=== PATIENT | male | born 1965 | race Caucasian/White ===

== ENCOUNTER → 2016-11-29 | Outpatient (CLI) | payer MEDICARE, MEDICAID ==
[~2016-11-29] MED LIST: ACYCLOVIR800 MG PO; AUGMENTIN 500 M1 TAB PO; BACTRIM DS 8001 TA1 PO; CARDURA8 M1 PO; CLONIDINE0.3 MG PO; COREG3.125 MG PO; COUMADIN1 MG PO; DAYPRO600 M1 PO; KLOR-CON20 MEQ PO; LASIX40 MG PO; LISINOPRIL40 MG PO; MOTRIN800 MG PO; NORVASC10 MG PO; SKELAXIN800 MG PO; TRAMADOL50 MG PO; TRILIPIX45 M1 PO; VICODIN 5/500 505 MG PO
[2016-11-29 16:22] LABS: INTERNATIONAL NORM RATIO 1.4 (2.0-3.5); PROTHROMBIN TIME 14.7 SECONDS (9.0-12.4)
== END | disposition home or self-care (01) ==
LOC: LAB 15:53
PROVIDERS: Internal Medicine
DX: I48.91 Unspecified atrial fibrillation (principal)

== ENCOUNTER 2017-03-21 10:32 | Inpatient (IN) | payer MEDICARE, MEDICAID ==
[~2017-03-21] VITALS: Ht 188 cm; Wt 125.3 kg
[2017-03-21] VITALS (7 sets, daily range): BP systolic 121–162; BP diastolic 79–103
--- NOTE | ~2017-03-21 | CON ---
[place], [place] REPORT OF CONSULTATION NAME: LORI BLANCHARD UNIT #: [id number] ROOM: 507 DOCTOR: ANNE MCMULLEN MD BIRTHDATE: [birth year] DOS: ADDENDUM Metoprolol dose should be increased, please change that to carvedilol dose should be increased to 37.5 mg b.i.d. ANNE MCMULLEN MD CM:CONSTR:REPORT OF CONSULTATION 1159 03/22/17 2234 interface
--- NOTE | ~2017-03-21 | CON ---
[place], [place] REPORT OF CONSULTATION NAME: LORI BLANCHARD UNIT #: [id number] ROOM: 507 DOCTOR: ANITRA JARQUINMYA BIRTHDATE: [birth year] DOS: 03/22/2017 HISTORY OF PRESENT ILLNESS: This is a 51-year-old gentleman who has presented with multiple medical problems, among which has been his hematemesis, prolonged INR, atrial fibrillation, intake of 5-6 ibuprofen tablets a day. At the time of admission, his white blood cell was 16, H and H of 17 and 50. INR was 3.1. PT and PTT of 35 and 42 respectively. Comprehensive metabolic panel, electrolyte balance, liver function test normal. Troponin 0.8. Chest x-ray, no focal infiltrate was noticed. PAST MEDICAL HISTORY: Atrial fibrillation, obesity, hypertension, diabetes mellitus, recent dental caries and as a result intake of large volume of ibuprofen as well as sleep apnea. PAST SURGICAL HISTORY: Umbilical hernia repair, pacemaker. SOCIAL HISTORY: Smoker, nonalcohol consumer. FAMILY HISTORY: Noncontributory. ALLERGIES: No known medications. MEDICATIONS: Medication list has been reviewed. He has been on Pen-Vee K, warfarin, and ibuprofen in addition to other medications. REVIEW OF SYSTEMS: HEENT: Denies double vision, blurred vision. RESPIRATORY: Denies acute shortness of breath. CARDIOVASCULAR: Denies acute chest pain. DIGESTIVE SYSTEM: Hematemesis. PHYSICAL EXAMINATION: VITAL SIGNS: Stable. HEENT: Head normocephalic, nontraumatic. Mouth and buccal mucosa benign. NECK: Supple, no thyromegaly, no cervical lymphadenopathy. CHEST: Symmetric anatomy, decreased air entry in general. HEART: Atrial fibrillation, moderate ventricular response. ABDOMEN: Morbidly obese, large, soft. No hepato-organomegaly. Bowel sounds present. No pulsatile mass. EXTREMITIES: No cyanosis, no pedal edema. NEUROLOGIC: Alert, oriented to time, place, person. IMPRESSION: Hematemesis, warfarin and ibuprofen. OTHER ADJUNCTIVE DIAGNOSES: Diabetes mellitus, atrial fibrillation, obesity, and hypertension. PLAN AND DISCUSSION: We will organize an endoscopy of upper tract for the etiology of hematemesis. [place], [place] REPORT OF CONSULTATION NAME: LORI BLANCHARD UNIT #: [id number] ROOM: 507 DOCTOR: MYA AYOUB MD BIRTHDATE: [birth year] MYA AYOUB MD CM:CONSTR:REPORT OF CONSULTATION 1527 03/23/17 0738 interface
--- NOTE | ~2017-03-21 | O ---
[place], [place] OPERATIVE NOTE NAME: [facility]ARD [id number] UNIT #: [id number] ROOM: 507 DOCTOR: ANITRA JARQUIN,MYA BIRTHDATE: [birth year] DOS: INDICATIONS: A 51-year-old patient who presented with chief complaint of hematemesis, undergoing investigation. The patient has been on nonsteroidal anti-inflammatory 4-6 tablets a day in addition to Coumadin, bleeding times have been corrected. PROCEDURE: Today's procedure part of investigation is panendoscopy. PREMEDICATION: Versed and Diprivan. SCOPE: Olympus forward-viewing gastroscope Q10 video. REPORT: After putting the patient in the left lateral position and after application of lubricant to the scope, the scope was introduced; thereafter, under direct visualization, advanced through the length of the esophagus without difficulty. Evidence of small hiatal hernia noticed. Gastritis was seen, ____ blood in the stomach was identified. Gastritis was noticed. IMPRESSION: Multiple small pyloric ring ulcers were noticed, duodenitis of moderate to severe degree seen. No biopsies obtained due to the fact that the patient has been on anticoagulant and needs to be back on it because of atrial fibrillation. PLAN AND DISCUSSION: We are going to proceed with Protonix therapy and Carafate therapy. The patient advised to abstain from intake of ibuprofen and if there is no active bleeding at the present time, the patient can be fed. MYA AYOUB MD CM:OPRECORD:OPERATIVE NOTE 162 39 MYA AYOUB MD 03/22/171940 interface
--- NOTE | ~2017-03-21 | EKG ---
[place], [place] ELECTROCARDIOGRAM REPORT NAME: LORI BLANCHARD UNIT #: [id number] ROOM: 507 DOCTOR: ANNE MCMULLEN MD BIRTHDATE: [birth year] DOS: 03/21/2017 TIME: 1100 hours IMPRESSION: 1. Atrial fibrillation with ventricular rate of 125 beats per minute. 2. There is ST segment depression in lateral leads that is suggestive of ischemia. 3. No previous tracing is available for comparison. ANNE MCMULLEN MD CM:EKGRPT:ELECTROCARDIOGRAM REPORT 1134 1300 ANNE MCMULLEN MD
--- NOTE | ~2017-03-21 | CON ---
[place], [place] REPORT OF CONSULTATION [id number] UNIT #: [id number] ROOM: 507 DOCTOR: ANNE MCMULLEN MD BIRTHDATE: [birth year] DOS: 03/22/2017 HISTORY OF PRESENT ILLNESS: This is a 51-year-old -[place] man with a history of chronic atrial fibrillation, who has cardiomyopathy. He had a dual chamber AICD implanted in 2009. He has not had a cardiac decompensation. He has never had stroke or any GI bleeding or hematuria. He does have diabetes mellitus, essential hypertension, morbid obesity, obstructive sleep apnea and has had umbilical herniorrhaphy. He painful tooth and had been taking 4-5 ibuprofen daily for the last 3 days. He presented yesterday following vomiting vomitus had blood in it and also had had dark stools for a couple of days. He had a little queasy feeling in the epigastrium, but no pain, no cramps either. He had no chest pain, palpitation, dizziness, breathing difficulty, orthopnea or swelling of the lower extremities. He does not smoke nor does he drink alcoholic beverages, lives at home. HOME MEDICATIONS: Include warfarin 4 mg daily, metformin 500 b.i.d., lisinopril 40 mg b.i.d., furosemide 40 daily, clonidine 0.3 mg t.i.d., carvedilol 25 mg b.i.d., amlodipine 10 mg daily. PHYSICAL EXAMINATION: GENERAL: Reveals a patient who is very pleasant, alert, oriented, complexion is fine. There is no fever, no thyromegaly or finger clubbing. VITAL SIGNS: Pulse is irregular at 80 beats per minute, blood pressure 140/80. NECK: JVP is normal. AJR is negative. LUNGS: Clear lungs without any adventitious sounds. EXTREMITIES: No edema of the lower extremities. ABDOMEN: Supple, nontender. There is no organomegaly. Bowel sounds are normal. DIAGNOSTIC STUDIES: ECG showed atrial fibrillation with rapid ventricular rate with lateral ischemia. Once the heart rate slowed down, ST segment seemed to improve. The device was interrogated and is functioning normally. It has 7 months of life left. Electrolytes were normal. Renal function was also normal. TSH 1.1, magnesium 1.9, hemoglobin 14.1 grams, INR was 3.1 on admission, now is 1.2. IMPRESSION: 1. Chronic atrial fibrillation with rapid ventricular rate. I think metoprolol needs to be added to the regimen to slow down the rate. 2. INR was just above normal and GI bleeding was probably acute gastritis induced by use of ibuprofen, which has been discontinued. RECOMMENDATIONS: I think it is okay to hold warfarin for the next week or two if necessary while bleeding is controlled and gastritis resolves (he is to have [place], [place] REPORT OF CONSULTATION NAME: LORI BLANCHARD UNIT #: [id number] ROOM: 507 DOCTOR: KEMI JARQUIN,ANNE BIRTHDATE: [birth year] endoscopy today). He also has dental caries and needs his dental extraction. I think he should probably stay off of warfarin over the next week or 2 and get his dental work done during this period. There is no evidence of cardiac decompensation. Thanks for this consult. ANNE MCMULLEN MD CM:CONSTR:REPORT OF CONSULTATION 1158 03/22/17 2232 interface
[~2017-03-21 10:32] MED LIST changes: +COREG25 MG PO; -COREG3.125 MG PO; -COUMADIN1 MG PO; +COUMADIN4 M2 PO; +PENICILLIN VK500 MG PO
[2017-03-21 11:03] LABS: BASO # 0.1 10*3/uL (0.0-0.1); BASO % 0.4 % (0.0-1.0); EOS % 0.1 % (1.0-4.0); HEMATOCRIT 50.4 % (42.0-52.0); HEMOGLOBIN 17.2 g/dl (14.0-18.0); LYMPH # 1.2 10*3/uL (1.3-4.4); LYMPH % 6.9 % (27.0-41.0); MEAN CELL VOLUME 93.3 fl (80.0-94.0); MEAN CORPUSCULAR HGB 31.9 pg (27.0-31.0); MEAN CORPUSCULAR HGB CONC 34.1 g/dl (33.0-37.0); MONO # 0.8 10*3/uL (0.1-1.0); NEUT # 14.5 10*3/uL (2.3-7.9); NEUT % 87.2 % (47.0-73.0); PLATELET COUNT AUTOMATED 207 10*3/uL (130-400); RED CELL DISTRI WIDTH 13.2 % (0-14.5); WHITE BLOOD COUNT 16.7 10*3/uL (4.8-10.8)
[2017-03-21 11:13] LABS: ACT PARTIAL THROMBO TIME 40.4 SECONDS (20.8-31.5); INTERNATIONAL NORM RATIO 3.1 (2.0-3.5)
[2017-03-21 11:20] LABS: ALKALINE PHOSPHATASE 173 U/L (45-117); BUN 27 mg/dl (7-24); CHLORIDE 105 mmol/L (98-107); CREATININE 0.85 mg/dL (0.70-1.30); LIPASE 113 U/L (73-393); POTASSIUM 4.2 mmol/L (3.5-5.1); SGOT/AST 17 IU/L (3-35); SGPT/ALT 20 U/L (12-78); SODIUM 141 mmol/L (136-145); TOTAL PROTEIN 7.4 gm/dL (6.4-8.2)
--- NOTE | 2017-03-21 13:00 | NUR ---
A 51, admitted to ICCU, under the services of DAVID Avery DO with a diagnosis of GI BLEED. Chief complaint is NAUSEA/VOMITING AT HOME. Patient arrived via stretcher from ER. Monitor applied. Initial assessment completed. Vital signs taken and recorded. DAVID AVERY DO notified of admission to the unit. Orders received. See assessment for past medical history, medications and allergies. Patient and/or family oriented to unit. [facility] visitation policy reviewed. Clothing/patient valuable form completed. SORAYA HUMMEL
--- NOTE | 2017-03-21 13:48 | NUR ---
NOTIFIED OF HOME MEDICATIONS BEING VERIFIED WITH [facility].
[2017-03-21] MEDS ORDERED: METFORMIN500 MG PO (15:50)
--- NOTE | 2017-03-21 18:00 | NUR ---
PATIENT ARRIVED TO THE FLOOR. REPORT RECIEVED FROM [facility] IN [facility]. PATIENT IS RESTING IN ROOM WITH NO COMPLAINTS AT THIS TIME. A&OX3. DENIES ANY CP. NO EDEMA, PPP. ROOM AIR. DOES USE A CPAP FROM HOME AT HS. PATIENT DENIES ANY DYSURIA. PATIENT DENIES ANY N/V/D AT THIS TIME.
[2017-03-21 18:46] LABS: BASO # 0.1 10*3/uL (0.0-0.1); BASO % 0.3 % (0.0-1.0); EOS % 0.1 % (1.0-4.0); HEMATOCRIT 44.7 % (42.0-52.0); HEMOGLOBIN 15.4 g/dl (14.0-18.0); LYMPH # 1.6 10*3/uL (1.3-4.4); LYMPH % 9.9 % (27.0-41.0); MEAN CELL VOLUME 92.9 fl (80.0-94.0); MEAN CORPUSCULAR HGB CONC 34.5 g/dl (33.0-37.0); NEUT # 13.5 10*3/uL (2.3-7.9); NEUT % 83.3 % (47.0-73.0); PLATELET COUNT AUTOMATED 168 10*3/uL (130-400); RED BLOOD COUNT 4.81 10*6/uL (4.50-5.90); RED CELL DISTRI WIDTH 13.1 % (0-14.5); WHITE BLOOD COUNT 16.2 10*3/uL (4.8-10.8)
--- NOTE | 2017-03-21 18:53 | NUR ---
PATIENT MEDICATED WITH PO NORCO FOR PAIN IN HIS TOOTH IN RIGHT SIDE OF MOUTH RATED 10/10
--- NOTE | 2017-03-21 20:10 | NUR ---
SPOKE TO REGARDING PATIENT'S CLAIMS OF PREVIOUS REACTION TO ANESTHESIA. PER PATIENT, HE HAD A COLONOSCOPY HERE IN PREVIOUS YEARS AND STATES HE "ALMOST DIDN'T WAKE UP." PATIENT DOES NOT KNOW ANY OTHER DETAILS IN REGARDS TO THIS REACTION. LOOKING BACK THROUGH CHART, DRAFT NOTE FOUND FROM 2013 STATING THAT PATIENT EXPERIENCED RESPIRATORY DIFFICULTY AND THE PROCEDURE WAS STOPPED. PER , PLACE A STANDARD SHEET OF PAPER ON FRONT OF PATIENT'S CHART STATING "ATTENTION ANESTHESIOLOGT: PREVIOUS REACTION TO ANESTHESIA." ALSO INSTRUCTED TO CALL DOWN IN AM BEFORE PROCEDURE TO NOTIFY ANESTHESIOLOGIST OF SITUATION.
--- NOTE | 2017-03-21 22:40 | NUR ---
PATIENT MEDICATED WITH PO NORCO PER PRN ORDER FOR C/O TOOTH PAIN 10/15. WILL MONITOR EFFECTIVENESS. CALL LIGHT LEFT IN REACH.
--- NOTE | 2017-03-21 23:26 | NUR ---
EARLIER MEDICATION EFFECTIVE PER PATIENT. WILL CONTINUE TO MONITOR. CALL LIGHT LEFT IN REACH.
[2017-03-22] VITALS (8 sets, daily range): BP systolic 138–172; BP diastolic 80–107
--- NOTE | 2017-03-22 01:08 | NUR ---
CALLED 'S ANSWERING SERVICE AT THIS TIME. PER ELECTRONICS DEPARTMENT MANAGER, DR.MAGGE SHADI CORPORATE LEGAL SECRETARY. SPOKE WITH . DISCUSSED PATIENT HAVING PACER SPIKES FOLLOWED BY PVCs. ALSO AWARE THAT PATIENT'S BASELINE RHTYHM IS AFIB. INSTRUCTED TO HAVE PATIENT'S PACER INTERROGATED. STATES TO WAIT UNTIL 6 AM AND CALL . PATIENT DOES NOT HAVE PACEMAKER CARD WITH HIM AT HOSPITAL. STATES HE WILL TRY TO HAVE SOMEONE BRING CARD TOMORROW. WILL CALL IN AM.
--- NOTE | 2017-03-22 03:50 | NUR ---
AT NURSES' STATION. PER JAD VERDUGO TO GIVE 0600 DOSE OF CLONIDINE WITH SIP OF WATER.
--- NOTE | 2017-03-22 06:12 | NUR ---
SPOKE WITH AT THIS TIME REGARDING CONSULT. STATES HE WILL SEE PATIENT TODAY.
--- NOTE | 2017-03-22 07:00 | NUR ---
PT WAS ASLEEP IN BED WITH CPAP AND AWOKE EASILY. PT IS A+OX3 AND UNDERSTANDS THAT HE IS AN ADD-ON FOR A EGD TODAY. HEART SOUNDS ARE NORMAL WITH A-FIB AND PACEMAKER SPIKES WITH PVC'S. LUNG SOUNDS ARE CLEAR AND BREATHING IS EASY. BSX4 NON-TENDER AND NON-DISTENDED. +PEDAL PULSES AND CAPILLARY REFILL OF LESS THAN 3 SECONDS. PT IS NPO FOR EGD. 18G IV IN LEFT ANTI-CUBITAL IS INTACT. [facility]
[2017-03-22 07:26] LABS: BASO # 0.1 10*3/uL (0.0-0.1); BASO % 0.5 % (0.0-1.0); EOS # 0.1 10*3/uL (0.0-0.4); EOS % 0.9 % (1.0-4.0); HEMATOCRIT 42.3 % (42.0-52.0); HEMOGLOBIN 14.1 g/dl (14.0-18.0); LYMPH # 1.7 10*3/uL (1.3-4.4); MEAN CELL VOLUME 93.6 fl (80.0-94.0); MEAN CORPUSCULAR HGB 31.2 pg (27.0-31.0); MEAN CORPUSCULAR HGB CONC 33.3 g/dl (33.0-37.0); MEAN PLATELET VOLUME 9.1 fl (9.6-12.3); MONO # 0.5 10*3/uL (0.1-1.0); MONO % 4.8 % (3.0-9.0); NEUT # 8.3 10*3/uL (2.3-7.9); NEUT % 77.4 % (47.0-73.0); PLATELET COUNT AUTOMATED 144 10*3/uL (130-400); RED BLOOD COUNT 4.52 10*6/uL (4.50-5.90); RED CELL DISTRI WIDTH 13.2 % (0-14.5); WHITE BLOOD COUNT 10.7 10*3/uL (4.8-10.8)
[2017-03-22 07:39] LABS: INTERNATIONAL NORM RATIO 1.2 (2.0-3.5)
--- NOTE | 2017-03-22 07:45 | NUR ---
SPOKE TO IZABELA CARROLL IN SURGERY AT THIS TIME. AWARE THAT PATIENT HAD PREVIOUS REACTION TO ANESTHESIA. CARLY STATES HE WILL PASS ON.
[2017-03-22 07:46] LABS: BUN 20 mg/dl (7-24); CHLORIDE 102 mmol/L (98-107); CREATININE 0.75 mg/dL (0.70-1.30); PHOSPHOROUS 2.7 mg/dL (2.5-4.9); SODIUM 138 mmol/L (136-145)
--- NOTE | 2017-03-22 08:00 | NUR ---
PT C/O PAIN IN BACK LOWER MOLAR RADIATING UP JAW AND INTO EAR. VERY SLIGHTLY RELIEVED BY PRESSING BEHIND EAR. PATIENT RATES PAIN 10/10. PT IS NPO AND WAS NOTIFIED. [facility]
--- NOTE | 2017-03-22 08:00 | NUR ---
Senior Accounting Associate in to talk to patient. Patient states lives at HOME ALONE with . There are 12 steps in the home. Physician: DR PECK Pharmacy: [facility] Home health services: NONE Patient's level of ADLs: INDEPENDENT Patient has working utilities: YES DME: CPAP Follow-up physician's appointment after d/c: WILL BE MADE UPON DC Does patient want to access PORTAL?: Discharge plan HOME. BRII PINO
--- NOTE | 2017-03-22 08:40 | NUR ---
ORDERED DILATED 0.25MG IV ONE TIME FOR PAIN. MEDICATION WAS ADMINISTERED AND PT HAD IMMEDIATE SLIGHT RELIEF. PT RATED PAIN A 6/10 IMMEDIATELY AFTER. WILL CONTINUE TO MONITOR. [facility]
[2017-03-22 08:47] LABS: VITAMIN D, 25-HYDROXY 28.8 ng/mL (30-100)
--- NOTE | 2017-03-22 09:40 | NUR ---
PT STARTED ON NS WITH 20MEQ KCL IV 1,000CC AT 80CC/H. PT PAIN RATED JAW PAIN AT 4/10. [facility]
--- NOTE | 2017-03-22 10:00 | NUR ---
PT A+OX3 PLEASENT AND COOPERATIVE WHILE VISITING WITH HIS . BED IS IN LOW POSITION AND CALL LIGHT IS IN REACH. PATIENT IS ON 0.9 NS WITH 20MEQ OF KCL AT 80CC/H THROUGH HEPARIN LOCK IN RIGHT ANTICUBITAL. HEPARIN LOCK IS INTACT. [facility]
--- NOTE | 2017-03-22 11:00 | NUR ---
[place] FOR PT PACEMAKER IN TO CHECK DEVICE. TECH SAID THAT PACEMAKER WAS WORKING PROPERLY AND EDUCATED PT ON THE IMPORTANCE OF TAKING THE PROPER BETA BLOCKERS. [facility]
--- NOTE | 2017-03-22 12:00 | NUR ---
PT A+0X3 PLEASANT AND COOPERATIVE. EYES HARIS. HEART SOUNDS NORMAL MONITOR SHOWS A-FIB WITH FREQUENT PVC'S. LUNG SOUNDS ARE CLEAR AND PT BREATHING EASILY. BSx4 NON-TENDER AND NON-DISTENDED. +PULSES THROUGHOUT WITH LESS THAN 3 SECOND CAPILLARY REFILL. SKIN IS WARM AND DRY. BED IN LOW POSITION AND CALL LIGHT IN REACH. [facility]
--- NOTE | 2017-03-22 15:08 | NUR ---
PATIENT TAKEN TO SURGERY AT THIS TIME.
--- NOTE | 2017-03-22 17:50 | NUR ---
PATIENT MEDICATED WITH NORCO AT THIS TIME FOR COMPLAINTS OF DENTAL PAIN. WILL MONITOR FOR EFFECTIVENESS.
[2017-03-22 19:24] LABS: BASO # 0.1 10*3/uL (0.0-0.1); BASO % 0.5 % (0.0-1.0); EOS # 0.1 10*3/uL (0.0-0.4); EOS % 0.8 % (1.0-4.0); HEMATOCRIT 43.2 % (42.0-52.0); HEMOGLOBIN 14.7 g/dl (14.0-18.0); LYMPH # 1.8 10*3/uL (1.3-4.4); LYMPH % 14.2 % (27.0-41.0); MEAN CELL VOLUME 94.1 fl (80.0-94.0); MEAN PLATELET VOLUME 8.4 fl (9.6-12.3); MONO # 0.6 10*3/uL (0.1-1.0); MONO % 4.9 % (3.0-9.0); NEUT # 9.9 10*3/uL (2.3-7.9); NEUT % 79.2 % (47.0-73.0); PLATELET COUNT AUTOMATED 142 10*3/uL (130-400); RED BLOOD COUNT 4.59 10*6/uL (4.50-5.90); WHITE BLOOD COUNT 12.5 10*3/uL (4.8-10.8)
--- NOTE | 2017-03-22 19:49 | NUR ---
LAB RESULTS AND ORDERS REVIEWED
[2017-03-23] VITALS: BP 132/99
[2017-03-23 07:15] LABS: BASO # 0.1 10*3/uL (0.0-0.1); BASO % 0.6 % (0.0-1.0); EOS # 0.1 10*3/uL (0.0-0.4); EOS % 1.1 % (1.0-4.0); HEMOGLOBIN 13.9 g/dl (14.0-18.0); LYMPH # 1.7 10*3/uL (1.3-4.4); LYMPH % 16.3 % (27.0-41.0); MEAN CELL VOLUME 94.5 fl (80.0-94.0); MEAN CORPUSCULAR HGB CONC 33.9 g/dl (33.0-37.0); MEAN PLATELET VOLUME 8.3 fl (9.6-12.3); MONO # 0.5 10*3/uL (0.1-1.0); MONO % 4.7 % (3.0-9.0); NEUT # 8.1 10*3/uL (2.3-7.9); NEUT % 76.9 % (47.0-73.0); PLATELET COUNT AUTOMATED 133 10*3/uL (130-400); RED BLOOD COUNT 4.34 10*6/uL (4.50-5.90); RED CELL DISTRI WIDTH 12.7 % (0-14.5); WHITE BLOOD COUNT 10.5 10*3/uL (4.8-10.8)
--- NOTE | 2017-03-23 07:45 | NUR ---
PT SLEEPING IN BED CPAP AND AWOKE EASILY. VITAL SIGNS STABLE. A+OX3 PLEASANT AND COOPERATIVE. HARIS. HEART SOUNDS ARE NORMAL MONITOR SHOWS FREQUENT PVC'S AND A-FIB. LUNGS ARE CLEAR AND PATIENT BREATHS EASILY. BSX4 NON-TENDER AND NON-DISTENDED. +PEDAL PULSES WITH LESS THAN 3 SECOND CAPPILARY REFILL. PT RECIEVED PAIN MEDICATION AT 0632 AND RATES PAIN A 10/10 BUT PT STATED "THE MEDICINE HELPS JUST NOT MUCH". PT CAN RECIEVED ORDER PAIN MEDS AGAIN AT 1032. DOCTOR WAS NOTIFIED. BED IN LOW POSITION, CALL LIGHT IN REACH, AND URINAL AT BEDSIDE. [facility]
[2017-03-23 07:48] LABS: BUN 11 mg/dl (7-24); CHLORIDE 99 mmol/L (98-107); POTASSIUM 3.3 mmol/L (3.5-5.1); SODIUM 134 mmol/L (136-145)
[2017-03-23 08:00] VITALS: BP 136/80
--- NOTE | 2017-03-23 08:00 | NUR ---
PT BEING CARED FOR BY [facility] STUDENT NURSE. WILL CONTINUE TO MONITOR.
--- NOTE | 2017-03-23 09:25 | NUR ---
PT HAS ORDER FOR FECAL OCCULT BLOOD TEST. HAT PLACED IN PATIENTS ROOM AND PT UNDERSTANDS THAT THEY NEED TO MOVE THEIR BOWELS FOR THE TEST. WILL CONTINUE TO MONITOR. [facility]
--- NOTE | 2017-03-23 09:30 | NUR ---
DR RAI IN TO SEE PT & MADE AWARE OF PTS CONTINUED C/O RT SIDED CHEEK & TOOTH PAIN. NEW ORDERS RECEIVED.
--- NOTE | 2017-03-23 09:36 | NUR ---
PAIN MEDICATION ADMINISTERED PER ORDER. PT IS A+0X3 AND RATES PAIN A 10/10. [facility]
--- NOTE | 2017-03-23 10:00 | NUR ---
PT FINISHING BREAKFAST AND STATED "I CAN EAT NOW THAT I HAVE THE PAIN MEDS.". PT STILL RATES PAIN A 10/10 AND STATES "IT STILL HURTS BUT ITS MUCH BETTER THAN IT WAS." BED IN LOW POSITION CALL LIGHT AND URINAL IN REACH. WILL CONTINUE TO MONITOR. [facility]
--- NOTE | 2017-03-23 10:18 | NUR ---
DR WRIGHT IN TO SEE PT & INFORMED THAT PT HAS NO DENTIST THAT HE SEE ON A REGULAR BASIS.
--- NOTE | 2017-03-23 10:28 | NUR ---
SPOKE WITH YOON AT DR BOSCH'S OFFICE REGARDING CONSULT.
--- NOTE | 2017-03-23 10:30 | NUR ---
PT HAS CONSULT WITH DR. BOSCH FOR CONTINUING TOOTH PAIN. PT HAS MILD SWELLING ON RIGHT CHEEK AND RATES PAIN A 10/10. PT WAS MEDICATED WITH NORCO 5/325 PO AT 0932. [facility]
[2017-03-23 12:00] VITALS: BP 138/80
--- NOTE | 2017-03-23 12:05 | NUR ---
PT C/O NAUSEA. PT STATED "I FEEL LIKE I AM GOING TO THROW UP.". VITAL SIGNS STABLE. [facility]
--- NOTE | 2017-03-23 12:15 | NUR ---
ZOFRAM 4MG IV PUSH BY ARNOLD POON RN. BED IN LOW POSITION, CALL LIGHT IN REACH, URINIAL AT BEDSIDE. WILL CONTINUE TO MONITOR. [facility]
--- NOTE | 2017-03-23 12:54 | NUR ---
DR RAI INFORMED THAT DR BOSCH CANNOT COME IN TODAY & WILL BE OOT TOMORROW.
--- NOTE | 2017-03-23 13:25 | NUR ---
ANBESOL MAXIMUM STRENGHT TOPICAL APPLIED TO AFFECTED TOOTH. PT HAD IMMEDIATE RELIEF AND STATED "THAT NUMBED IT UP FAST.". WILL CONTINUE TO MONITOR. [facility]
--- NOTE | 2017-03-23 13:25 | NUR ---
PT NAUSEA WAS RELIEVED BY ZOFRAM 4MG IV PUSH BY ARNOLD POON RN. PT STATED "I DONT FEEL LIKE I AM GOING TO PUKE NOW.". [facility]
[2017-03-23] MEDS ORDERED: VITAMIN D32000 UNIT PO (13:47)
[2017-03-23] MEDS ORDERED: FOLGARD TABLET1 EACH PO (13:47)
[2017-03-23] MEDS ORDERED: PANTOPRAZOLE SO40 MG PO (14:14)
[2017-03-23] MEDS ORDERED: CARAFATE1 GM/10 ML PO (14:16)
[2017-03-23] MEDS ORDERED: AUGMENTIN 875-875 MG PO (14:17)
[2017-03-23] MEDS ORDERED: ORAL ANESTHETIC12 GM MM (14:21)
--- NOTE | 2017-03-23 15:08 | NUR ---
MEDICATED PO ORDERED PER PT REQUEST WITH NORCO FOR C/O RT SIDED LOWER TOOTH PAIN. PT RATES PAIN 02/14. SEE EMAR.
--- NOTE | 2017-03-23 15:27 | NUR ---
PT VOICES MUCH DISSATISFACTION REGARDING FACT THAT "THE DR" DID NOT TELL HIM THAT HE WAS BEING DISCHARGED. CALLED DR RAI WHO STATES THAT DR PEREZ WILL BE UP TO SPEAK TO PT. PT PROVIDED WITH TELEPHONE NUMBERS FOR SEVERAL DENTISTS IN THE AREA.
[2017-03-23] MEDS ORDERED: PERCOCET 5-3251 EACH PO (15:55)
--- NOTE | 2017-03-23 16:09 | NUR ---
DR PEREZ IN TO SEE PT.
--- NOTE | 2017-03-23 17:00 | NUR ---
Discharge instructions reviewed with patient/family. Patient receptive and verbalizes understanding. Written instructions given to patient/family. ANGELAI FONTENOT
== END 2017-03-23 19:15 | disposition home or self-care (01) | DRG 378 ==
LOC: ED 10:32 → 5E 12:03 → EDHOLD 12:03 → ICCU 12:11 → 5E 17:29
PROVIDERS: Hospitalist; Internal Medicine; Internal Medicine Gastroenterology; Student in an Organized Health Care Education/Training Program; ADMIT Internal Medicine
PROC: 0DJ08ZZ Inspection of Upper Intestinal Tract, Via Natural or Artificial Opening Endoscopic (ICD-10-PCS; principal; 2017-03-21)
PROC: 30233K1 Transfusion of Nonautologous Frozen Plasma into Peripheral Vein, Percutaneous Approach (ICD-10-PCS; principal; 2017-03-21)
PROC: 30233L1 Transfusion of Nonautologous Fresh Plasma into Peripheral Vein, Percutaneous Approach (ICD-10-PCS; principal; 2017-03-21)
PROC: 4B02XSZ Measurement of Cardiac Pacemaker, External Approach (ICD-10-PCS; 2017-03-23)
DX: K25.4 Chronic or unspecified gastric ulcer with hemorrhage (principal); D68.9 Coagulation defect, unspecified; R65.10 Systemic inflammatory response syndrome (SIRS) of non-infectious origin without acute organ dysfunction; E44.1 Mild protein-calorie malnutrition; E11.65 Type 2 diabetes mellitus with hyperglycemia; E66.01 Morbid (severe) obesity due to excess calories; E87.6 Hypokalemia; K29.71 Gastritis, unspecified, with bleeding; K29.81 Duodenitis with bleeding; T45.515A Adverse effect of anticoagulants, initial encounter; F17.200 Nicotine dependence, unspecified, uncomplicated; K44.9 Diaphragmatic hernia without obstruction or gangrene; I10 Essential (primary) hypertension; K02.9 Dental caries, unspecified; D64.9 Anemia, unspecified; G47.33 Obstructive sleep apnea (adult) (pediatric); Z79.01 Long term (current) use of anticoagulants; Z79.899 Other long term (current) drug therapy; Y92.89 Other specified places as the place of occurrence of the external cause; Z83.3 Family history of diabetes mellitus; Z80.0 Family history of malignant neoplasm of digestive organs; Z82.49 Family history of ischemic heart disease and other diseases of the circulatory system; Z79.84 Long term (current) use of oral hypoglycemic drugs; Z68.37 Body mass index [BMI] 37.0-37.9, adult; Z95.810 Presence of automatic (implantable) cardiac defibrillator; I48.2 Chronic atrial fibrillation

== ENCOUNTER → 2017-05-24 | Outpatient (CLI) | payer MEDICARE ==
[~2017-05-24] MED LIST changes: +AUGMENTIN 875-875 MG PO; +CARAFATE1 GM/10 ML PO; +FOLGARD TABLET1 EACH PO; +METFORMIN500 MG PO; +ORAL ANESTHETIC12 GM MM; +PANTOPRAZOLE SO40 MG PO; +PERCOCET 5-3251 EACH PO; +VITAMIN D32000 UNIT PO
[2017-05-24 13:06] LABS: INTERNATIONAL NORM RATIO 2.6 (2.0-3.5)
== END | disposition home or self-care (01) ==
LOC: LAB 12:21
DX: I48.91 Unspecified atrial fibrillation (principal)

== ENCOUNTER → 2017-09-25 | Outpatient (CLI) | payer MEDICARE ==
[2017-09-25 12:42] LABS: HEMOGLOBIN 16.7 g/dl (14.0-18.0); MEAN CELL VOLUME 93.2 fl (80.0-94.0); MEAN CORPUSCULAR HGB 32.4 pg (27.0-31.0); MEAN CORPUSCULAR HGB CONC 34.8 g/dl (33.0-37.0); MEAN PLATELET VOLUME 8.5 fl (9.6-12.3); RED BLOOD COUNT 5.15 10*6/uL (4.50-5.90); RED CELL DISTRI WIDTH 13.5 % (0-14.5); WHITE BLOOD COUNT 12.3 10*3/uL (4.8-10.8)
[2017-09-25 13:32] LABS: ALBUMIN 3.4 gm/dl (3.1-4.5); ALKALINE PHOSPHATASE 163 U/L (45-117); BUN 6 mg/dl (7-24); CHLORIDE 100 mmol/L (98-107); CHOLESTEROL 162 mg/dL (<200); CREATININE 0.96 mg/dL (0.70-1.30); HDL CHOLESTEROL 59 mg/dl (40-60); LDL CHOLESTEROL 85 mg/dL (9-159); POTASSIUM 4.3 mmol/L (3.5-5.1); SGOT/AST 61 IU/L (3-35); SGPT/ALT 38 U/L (12-78); SODIUM 133 mmol/L (136-145); TOTAL PROTEIN 7.3 gm/dL (6.4-8.2); TRIGLYCERIDES 89 mg/dl (<150); VLDL CHOLESTEROL 18 mg/dL (6-40)
[2017-09-25 13:56] LABS: INTERNATIONAL NORM RATIO 6.5 (2.0-3.5)
== END | disposition home or self-care (01) ==
LOC: LAB 12:21
DX: Z12.5 Encounter for screening for malignant neoplasm of prostate (principal); E11.9 Type 2 diabetes mellitus without complications; I48.91 Unspecified atrial fibrillation

== ENCOUNTER → 2018-04-03 | Outpatient (CLI) | payer MEDICARE | END | disposition home or self-care (01) | LOC: LAB 15:58 | DX: E83.51 Hypocalcemia (principal); Z79.899 Other long term (current) drug therapy ==

== ENCOUNTER → 2018-06-13 | Outpatient (CLI) | payer OTHER, MEDICAID | END | disposition home or self-care (01) | LOC: LAB 13:28 | PROVIDERS: Physician Assistant | DX: I48.91 Unspecified atrial fibrillation (principal) ==

== ENCOUNTER → 2019-06-04 | Outpatient (CLI) | payer OTHER, MEDICAID | END | disposition home or self-care (01) | LOC: CARD 11:59 | DX: I34.1 Nonrheumatic mitral (valve) prolapse (principal); I11.9 Hypertensive heart disease without heart failure; Z95.2 Presence of prosthetic heart valve ==

== ENCOUNTER → 2020-04-22 | Outpatient (CLI) | payer OTHER, MEDICAID | END | disposition home or self-care (01) | LOC: COVID19 09:20 | PROVIDERS: ATTEND Physician Assistant | DX: U07.1 COVID-19 (principal) ==

== ENCOUNTER → 2020-05-27 | Outpatient (CLI) | payer OTHER, MEDICAID | END | disposition home or self-care (01) | LOC: RAD 14:26 → LAB 14:26 | PROVIDERS: ATTEND Physician Assistant | DX: J43.9 Emphysema, unspecified (principal); I48.91 Unspecified atrial fibrillation ==